=== PATIENT | female | born 1985 | race Caucasian/White ===

== ENCOUNTER 2017-03-09 16:58 | Emergency (ER) | payer OTHER ==
[~2017-03-09] VITALS: Ht 172.7 cm; Wt 78.9 kg
[2017-03-09] MEDS ORDERED: TRINATE TABLET1 TAB PO (17:21)
[2017-03-09] MEDS ORDERED: NAPROSYN500 MG PO (17:21)
[2017-03-09] MEDS ORDERED: LEVOTHYROXINE0.05 MG PO (17:21)
[2017-03-09] MEDS ORDERED: NORCO 5-325 TA1 EACH PO (17:45)
[2017-03-09 18:30] VITALS: BP 126/91
== END 2017-03-09 18:30 | disposition home or self-care (01) ==
LOC: ER 16:58
DX: S93.401A Sprain of unspecified ligament of right ankle, initial encounter (principal); E03.9 Hypothyroidism, unspecified; F10.99 Alcohol use, unspecified with unspecified alcohol-induced disorder; Z88.0 Allergy status to penicillin; Z88.1 Allergy status to other antibiotic agents; W01.0XXA Fall on same level from slipping, tripping and stumbling without subsequent striking against object, initial encounter; Y93.01 Activity, walking, marching and hiking; Y92.59 Other trade areas as the place of occurrence of the external cause; Y99.0 Civilian activity done for income or pay

== ENCOUNTER 2018-11-18 00:25 | Emergency (ER) | payer OTHER ==
[~2018-11-18] VITALS: Ht 172.7 cm; Wt 86.2 kg
[~2018-11-18 00:25] MED LIST: LEVOTHYROXINE0.05 MG PO; NAPROSYN500 MG PO; NORCO 5-325 TA1 EACH PO; TRINATE TABLET1 TAB PO
[2018-11-18 02:16] LABS: URINE BILIRUBIN NEGATIVE (Negative); URINE BLOOD NEGATIVE (Negative); URINE CLARITY CLEAR; URINE COLOR YELLOW; URINE GLUCOSE-RANDOM* NEGATIVE (Negative); URINE KETONES NEGATIVE (Negative); URINE LEUKOCYTES-REFLEX NEGATIVE (Negative); URINE NITRITE-REFLEX NEGATIVE (Negative); URINE PROTEIN (DIPSTICK) NEGATIVE (Negative); URINE UROBILINOGEN 0.2 E.U./dl (0.2-1.0)
[2018-11-18] MEDS ORDERED: FLEXERIL PO (02:35)
[2018-11-18] MEDS ORDERED: NORCO 5-325 TA1 EACH PO (02:35)
[2018-11-18] MEDS ORDERED: MOBIC7.5 MG PO (02:35)
[2018-11-18] MEDS ORDERED: ZOFRAN ODT4 MG PO (02:56)
[2018-11-18 03:00] VITALS: BP 105/67
== END 2018-11-18 03:00 | disposition home or self-care (01) ==
LOC: ER 00:25
PROVIDERS: Emergency Medicine
DX: S39.012A Strain of muscle, fascia and tendon of lower back, initial encounter (principal); E03.9 Hypothyroidism, unspecified; Z88.1 Allergy status to other antibiotic agents; Z88.0 Allergy status to penicillin; Z88.2 Allergy status to sulfonamides; Z98.890 Other specified postprocedural states; X58.XXXA Exposure to other specified factors, initial encounter; Y93.89 Activity, other specified; Y92.89 Other specified places as the place of occurrence of the external cause; Y99.8 Other external cause status

== ENCOUNTER 2018-11-22 10:54 | Emergency (ER) | payer OTHER ==
[~2018-11-22] VITALS: Ht 172.7 cm; Wt 86.2 kg
[~2018-11-22 10:54] MED LIST changes: +FLEXERIL PO; +MOBIC7.5 MG PO; +ZOFRAN ODT4 MG PO
[2018-11-22] MEDS ORDERED: NORFLEX100 MG PO (13:03)
[2018-11-22] MEDS ORDERED: ACETAMINOPHEN-1 EAC1 PO (13:03)
[2018-11-22] MEDS ORDERED: ONDANSETRON ODT8 MG PO (14:24)
[2018-11-22 14:28] VITALS: BP 116/72
[2018-11-23] MEDS ORDERED: FLEXERIL PO (11:23)
== END 2018-11-22 14:29 | disposition home or self-care (01) ==
LOC: ER 10:54
DX: M54.41 Lumbago with sciatica, right side (principal); E03.9 Hypothyroidism, unspecified; Z98.890 Other specified postprocedural states; Z88.0 Allergy status to penicillin; Z88.1 Allergy status to other antibiotic agents; Z88.2 Allergy status to sulfonamides; Z88.8 Allergy status to other drugs, medicaments and biological substances

== ENCOUNTER 2018-11-23 11:18 | Emergency (ER) | payer OTHER ==
[~2018-11-23] VITALS: Ht 172.7 cm; Wt 86.2 kg
[~2018-11-23 11:18] MED LIST changes: +ACETAMINOPHEN-1 EAC1 PO; +NORFLEX100 MG PO; +ONDANSETRON ODT8 MG PO
[2018-11-23 11:19] VITALS: BP 131/80
[2018-11-23] MEDS ORDERED: FLEXERIL PO (11:23)
== END 2018-11-23 11:43 | disposition home or self-care (01) ==
LOC: ER 11:18
DX: S39.012A Strain of muscle, fascia and tendon of lower back, initial encounter (principal); E03.9 Hypothyroidism, unspecified; M41.9 Scoliosis, unspecified; Z76.0 Encounter for issue of repeat prescription; Z88.0 Allergy status to penicillin; Z88.1 Allergy status to other antibiotic agents; Z79.899 Other long term (current) drug therapy; X58.XXXA Exposure to other specified factors, initial encounter; Y93.89 Activity, other specified; Y92.89 Other specified places as the place of occurrence of the external cause; Y99.8 Other external cause status